=== PATIENT | female | born 1965 | race African-American/Black ===

== ENCOUNTER 2020-08-15 16:30 | Inpatient (IN) | payer OTHER ==
[2020-08-15 18:07] VITALS: BMI 39.4
[2020-08-15] MEDS ORDERED: P-EPHED 60MG/TRIPROLIDI 2.5MG TABLET PO PRN (22:56)
[2020-08-15] MEDS ORDERED: MAGNESIUM CITRATE 300 ML BOTTLE PO PRN (22:56)
[2020-08-15] MEDS ORDERED: MAG HYDROX/AL HYDROX/SIMETH 30 ML UNIT-DOSE CUP PO PRN (22:56)
[2020-08-15] MEDS ORDERED: ACETAMINOPHEN 325 MG TABLET (FP) PO PRN (22:56)
[2020-08-15] MEDS ORDERED: hydrOXYzine PAMOATE 25 MG CAPSULE (FP) PO PRN (22:56)
[2020-08-15] MEDS ORDERED: IBUPROFEN 400 MG TABLET (FP) PO PRN (22:56)
[2020-08-15] MEDS ORDERED: MAGNESIUM HYDROX 2400MG/30ML ORAL SUSPENSION 30 ML CUP PO PRN (22:56)
[2020-08-15] MEDS ORDERED: NICOTINE POLACRILEX 2 MG GUM BC PRN (22:56)
[2020-08-15] MEDS ORDERED: LOPERAMIDE HCL 2 MG CAPSULE PO PRN (22:56)
[2020-08-15] MEDS ORDERED: TUBERCULIN PPD 5 TU/0.1ML VIAL ID ONE (23:51)
[2020-08-15] MEDS: MELATONIN 5 MG TABLETS PO SCH (23:54)
[2020-08-15] MEDS: guaiFENesin 200 MG/10 ML 10 ML UNIT-DOSE CUPS PO SCH (23:59)
[2020-08-16] MEDS: guaiFENesin 200 MG/10 ML 10 ML UNIT-DOSE CUPS PO SCH ×4 (06:41→23:20)
[2020-08-16] MEDS: PRENATAL VITAMINS W/ FOLIC ACID TABLET (FP) PO SCH (09:38)
[2020-08-16] MEDS: NICOTINE 7 MG/24 HOURS TOPICAL PATCH TD SCH (09:38)
[2020-08-16 10:01] LABS: HEMATOCRIT 35.1 % (32.4-45.2); HEMOGLOBIN 11.5 GM/dL (10.7-15.3); MCH 27.9 pg (25.7-33.7); MCHC 32.7 g/dl (32.0-36.0); MEAN CELL VOLUME 85.1 fl (80-96); MEAN PLT VOLUME 10.1 fl (7.5-11.1); PLATELET COUNT 194 K/MM3 (134-434); RBC 4.12 M/mm3 (3.60-5.2); RDW 16.2 % (11.6-15.6); WHITE BLOOD COUNT 5.5 K/mm3 (4.0-10.0)
[2020-08-16 10:25] LABS: ALBUMIN 3.1 g/dl (3.4-5.0); CALCIUM 8.7 mg/dL (8.5-10.1)
[2020-08-16 10:26] LABS: BLOOD UREA NITROGEN 22.2 mg/dL (7-18)
[2020-08-16 10:30] LABS: BILIRUBIN,TOTAL 0.5 mg/dL (0.2-1); TOT PROT 6.8 g/dl (6.4-8.2)
[2020-08-16 11:16] LABS: HIV INTERPRETATION NEGATIVE (NEGATIVE)
[2020-08-16] MEDS: hydrOXYzine PAMOATE 25 MG CAPSULE (FP) PO PRN ×2 (18:07→22:08)
[2020-08-16] MEDS: MELATONIN 5 MG TABLETS PO SCH (22:07)
[2020-08-16] MEDS: THIAMINE HCL 100 MG TABLET (FP) PO SCH (22:08)
[2020-08-17 00:44] LABS: PH,URINE 7.5 (5.0-8.0); URINE APPEARANCE TURBID; URINE BILIRUBIN NEGATIVE (NEGATIVE); URINE COLOR YELLOW; URINE GLUCOSE (UA) NEGATIVE (NEGATIVE); URINE KETONE NEGATIVE (NEGATIVE); URINE LEUK ESTERASE NEGATIVE (NEGATIVE); URINE NITRITE NEGATIVE (NEGATIVE); URINE PROTEIN NEGATIVE (NEGATIVE); URINE UROBILINOGEN 0.2 mg/dL (0.2-1.0)
[2020-08-17] MEDS: guaiFENesin 200 MG/10 ML 10 ML UNIT-DOSE CUPS PO SCH ×4 (06:23→23:53)
[2020-08-17] MEDS ORDERED: cloNIDine HCL 0.1 MG TABLET PO ONE (06:57)
[2020-08-17] MEDS: PRENATAL VITAMINS W/ FOLIC ACID TABLET (FP) PO SCH (11:15)
[2020-08-17] MEDS: hydrOXYzine PAMOATE 25 MG CAPSULE (FP) PO PRN ×2 (11:16→21:07)
[2020-08-17] MEDS: NICOTINE 7 MG/24 HOURS TOPICAL PATCH TD SCH (11:16)
[2020-08-17] MEDS: THIAMINE HCL 100 MG TABLET (FP) PO SCH (21:07)
[2020-08-17] MEDS: MELATONIN 5 MG TABLETS PO SCH (21:07)
[2020-08-18] MEDS: guaiFENesin 200 MG/10 ML 10 ML UNIT-DOSE CUPS PO SCH ×3 (06:46→17:54)
[2020-08-18] MEDS: PRENATAL VITAMINS W/ FOLIC ACID TABLET (FP) PO SCH (09:35)
[2020-08-18] MEDS: NICOTINE 7 MG/24 HOURS TOPICAL PATCH TD SCH (09:36)
[2020-08-18] MEDS ORDERED: cloNIDine HCL 0.1 MG TABLET PO ONE (20:33)
[2020-08-18] MEDS: THIAMINE HCL 100 MG TABLET (FP) PO SCH (21:59)
[2020-08-18] MEDS: hydrOXYzine PAMOATE 25 MG CAPSULE (FP) PO PRN (21:59)
[2020-08-18] MEDS: MELATONIN 5 MG TABLETS PO SCH (21:59)
[2020-08-19] MEDS: NICOTINE 7 MG/24 HOURS TOPICAL PATCH TD SCH (09:47)
[2020-08-19] MEDS: PRENATAL VITAMINS W/ FOLIC ACID TABLET (FP) PO SCH (09:47)
[2020-08-19] MEDS ORDERED: CARVEDILOL 6.25 MG TABLET (FP) PO SCH (11:15)
[2020-08-19] MEDS: NIFEdipine E.R. 90 MG TABLET PO SCH (11:39)
[2020-08-19] MEDS: traZODone HCL 50 MG TABLET (FP) PO SCH (21:02)
[2020-08-19] MEDS: MELATONIN 5 MG TABLETS PO SCH (21:03)
[2020-08-19] MEDS: THIAMINE HCL 100 MG TABLET (FP) PO SCH (21:03)
[2020-08-19] MEDS ORDERED: traZODone HCL 100 MG TABLET (FP) PO SCH (22:00)
[2020-08-20] MEDS: PRENATAL VITAMINS W/ FOLIC ACID TABLET (FP) PO SCH (09:35)
[2020-08-20] MEDS: NICOTINE 7 MG/24 HOURS TOPICAL PATCH TD SCH (09:35)
[2020-08-20] MEDS: METOPROLOL TARTRATE 25 MG TABLET (FP) PO SCH ×2 (09:36→21:01)
[2020-08-20] MEDS: LISINOPRIL 10 MG TABLET PO SCH (09:36)
[2020-08-20] MEDS: LOSARTAN 50MG/HCTZ 12.5MG 1 TAB PO SCH (09:36)
[2020-08-20] MEDS: NIFEdipine E.R. 90 MG TABLET PO SCH (09:36)
[2020-08-20] MEDS ORDERED: HALOPERIDOL 5 MG TABLET PO SCH (10:00)
[2020-08-20] MEDS ORDERED: ESCITALOPRAM OXALATE 10 MG TABLET PO SCH (10:00)
[2020-08-20] MEDS ORDERED: ESCITALOPRAM OXALATE 20 MG TABLET PO SCH (10:00)
[2020-08-20] MEDS ORDERED: BENZTROPINE MESYLATE 1 MG TABLET PO SCH (10:00)
[2020-08-20] MEDS ORDERED: ALBUTEROL SO4 HFA INHALER IH PRN (12:07)
[2020-08-20] MEDS ORDERED: PT OWN MED DRAWER 7, Y5N ONE (15:05)
[2020-08-20] MEDS: traZODone HCL 50 MG TABLET (FP) PO SCH (21:02)
[2020-08-20] MEDS: THIAMINE HCL 100 MG TABLET (FP) PO SCH (21:02)
[2020-08-20] MEDS: MELATONIN 5 MG TABLETS PO SCH (21:02)
[2020-08-20] MEDS: BENZTROPINE MESYLATE 1 MG TABLET PO SCH (21:03)
[2020-08-20] MEDS ORDERED: HALOPERIDOL 2 MG TABLET PO SCH (22:00)
[2020-08-21] MEDS: NICOTINE 7 MG/24 HOURS TOPICAL PATCH TD SCH (09:53)
[2020-08-21] MEDS: LISINOPRIL 10 MG TABLET PO SCH (09:53)
[2020-08-21] MEDS: PRENATAL VITAMINS W/ FOLIC ACID TABLET (FP) PO SCH (09:53)
[2020-08-21] MEDS: METOPROLOL TARTRATE 25 MG TABLET (FP) PO SCH ×2 (09:53→21:22)
[2020-08-21] MEDS: BENZTROPINE MESYLATE 1 MG TABLET PO SCH ×2 (09:53→21:22)
[2020-08-21] MEDS: ESCITALOPRAM OXALATE 20 MG TABLET PO SCH (09:53)
[2020-08-21] MEDS: NIFEdipine E.R. 90 MG TABLET PO SCH (09:54)
[2020-08-21] MEDS: LOSARTAN 50MG/HCTZ 12.5MG 1 TAB PO SCH (09:54)
[2020-08-21] MEDS: traZODone HCL 50 MG TABLET (FP) PO SCH (21:22)
[2020-08-21] MEDS: MELATONIN 5 MG TABLETS PO SCH (21:22)
[2020-08-21] MEDS: THIAMINE HCL 100 MG TABLET (FP) PO SCH (21:22)
[2020-08-22] MEDS: NIFEdipine E.R. 90 MG TABLET PO SCH (09:57)
[2020-08-22] MEDS: METOPROLOL TARTRATE 25 MG TABLET (FP) PO SCH ×2 (09:57→21:03)
[2020-08-22] MEDS: BENZTROPINE MESYLATE 1 MG TABLET PO SCH ×2 (09:57→21:03)
[2020-08-22] MEDS: LISINOPRIL 10 MG TABLET PO SCH (09:57)
[2020-08-22] MEDS: PRENATAL VITAMINS W/ FOLIC ACID TABLET (FP) PO SCH (09:57)
[2020-08-22] MEDS: ESCITALOPRAM OXALATE 20 MG TABLET PO SCH (09:57)
[2020-08-22] MEDS: NICOTINE 7 MG/24 HOURS TOPICAL PATCH TD SCH (09:58)
[2020-08-22] MEDS: LOSARTAN 50MG/HCTZ 12.5MG 1 TAB PO SCH (09:58)
[2020-08-22] MEDS: THIAMINE HCL 100 MG TABLET (FP) PO SCH (21:03)
[2020-08-22] MEDS: MELATONIN 5 MG TABLETS PO SCH (21:03)
[2020-08-22] MEDS: traZODone HCL 50 MG TABLET (FP) PO SCH (21:03)
[2020-08-23 06:49] VITALS: TEMP 97.6
[2020-08-23 09:00] VITALS: BP 121/75; PULSE 70
[2020-08-23] MEDS: METOPROLOL TARTRATE 25 MG TABLET (FP) PO SCH (09:36)
[2020-08-23] MEDS: ESCITALOPRAM OXALATE 20 MG TABLET PO SCH (09:36)
[2020-08-23] MEDS: PRENATAL VITAMINS W/ FOLIC ACID TABLET (FP) PO SCH (09:36)
[2020-08-23] MEDS: NICOTINE 7 MG/24 HOURS TOPICAL PATCH TD SCH (09:37)
[2020-08-23] MEDS: LOSARTAN 50MG/HCTZ 12.5MG 1 TAB PO SCH (09:37)
[2020-08-23] MEDS: NIFEdipine E.R. 90 MG TABLET PO SCH (09:37)
[2020-08-23] MEDS: LISINOPRIL 10 MG TABLET PO SCH (09:37)
[2020-08-23] MEDS: BENZTROPINE MESYLATE 1 MG TABLET PO SCH (09:37)
== END 2020-08-23 12:41 | disposition home or self-care (01) | DRG 772 ==
LOC: YASAS 16:30 → Y5N 22:07
PROVIDERS: ADMIT Allergy & Immunology; ATTEND Allergy & Immunology
PROC: HZ42ZZZ Group Counseling for Substance Abuse Treatment, Cognitive-Behavioral (ICD-10-PCS; principal; 2020-08-15)
DX: F10.20 Alcohol dependence, uncomplicated (principal); F14.20 Cocaine dependence, uncomplicated; F17.210 Nicotine dependence, cigarettes, uncomplicated; F19.24 Other psychoactive substance dependence with psychoactive substance-induced mood disorder; F20.9 Schizophrenia, unspecified; I10 Essential (primary) hypertension; J45.909 Unspecified asthma, uncomplicated; M54.5 Low back pain; G89.29 Other chronic pain; R05 Cough; E66.9 Obesity, unspecified; Z68.39 Body mass index [BMI] 39.0-39.9, adult; Z86.19 Personal history of other infectious and parasitic diseases
CPT/HCPCS: 36415; 80053; 81003; 85027; 86593; 86780; 87389; 93005; 93010; C9803; J0735; U0003